=== PATIENT | female | born 1970 | race Caucasian/White ===

== ENCOUNTER 2021-12-21 08:10 | Emergency (ER) | payer BC ==
[~2021-12-21] VITALS: Ht 165.1 cm; Wt 77.1 kg
[2021-12-21] MEDS ORDERED: ESTROVEN CMPLT M4 MG PO (08:46)
[2021-12-21] MEDS ORDERED: PEPCID AC20 MG PO (17:02)
[2021-12-21] MEDS ORDERED: ONDANSETRON ODT4 MG PO (17:02)
== END 2021-12-21 17:16 ==
LOC: ER 08:10
DX: K52.9 Noninfective gastroenteritis and colitis, unspecified (principal); E86.0 Dehydration

== ENCOUNTER 2023-10-30 06:32 | Emergency (ER) | payer BC ==
[~2023-10-30] VITALS: Ht 165.1 cm; Wt 68.0 kg
[~2023-10-30 06:32] MED LIST: ESTROVEN CMPLT M4 MG PO; ONDANSETRON ODT4 MG PO; PEPCID AC20 MG PO
[2023-10-30] MEDS ORDERED: LEXAPRO5 MG (06:38)
[2023-10-30] MEDS ORDERED: WEGOVY0.25 MG/0. (06:38)
[2023-10-30] MEDS ORDERED: XANAX0.25 MG (06:38)
[2023-10-30] MEDS ORDERED: ORPHENADRINE CITRATE 30 MG/ML AMPUL IV STA (07:42)
[2023-10-30] MEDS ORDERED: KETOROLAC TROMETHAMINE 30 MG VIAL IV STA (07:43)
[2023-10-30] MEDS ORDERED: POTASSIUM CHLORIDE/NACL 0.9% 1,000 ML IV ONE (07:45)
[2023-10-30 08:24] LABS: HEMATOCRIT 43.4 % (36.0-45.00); HEMOGLOBIN 14.7 g/dL (12.0-15.00); MEAN CORPUSCULAR HEMOGLOBIN 30.6 pg (27.00-32.0); PLATELET COUNT 218 K/uL (150-450); RED BLOOD COUNT 4.82 M/uL (4.00-6.00); RED CELL DISTRIBUTION WIDTH 13.4 % (11.5-14.5)
[2023-10-30 08:36] LABS: INR 1.01; PARTIAL THROMBOPLASTIN TIME 32.3 SECONDS (22.0-34.0); PROTHROMBIN TIME 10.6 SECONDS (9.0-11.5)
[2023-10-30 08:42] LABS: URINE APPEARANCE Cloudy; URINE BILIRRUBIN Negative (NEGATIVE); URINE BLOOD Negative; URINE COLOR Yellow; URINE GLUCOSE Negative (NEGATIVE); URINE LEUKOCYTE Negative; URINE NITRATE Negative; URINE PROTEIN Negative (NEGATIVE); URINE UROBILINOGEN 0.2 E.U./dl
[2023-10-30 08:47] LABS: URINE BACTERIA 125.9 uL (0.0-1933); URINE EPITHELIAL CELLS 36.7 uL (0.0-38.8); URINE RBC 4.8 uL (0.0-20.8)
[2023-10-30 09:46] LABS: URINE WBC 0.9 uL (0.0-23.2)
[2023-10-30 09:51] LABS: BILIRUBIN TOTAL 0.46 mg/dL (0.3-1.2); CALCIUM 8.9 mg/dL (8.5-10.1); CREATININE SERUM 0.75 mg/dL (0.55-1.02); GFR 81.47; GLOBULINA 2.9 G/DL (2.4-3.5); POTASSIUM 3.85 mEq/L (3.5-5.1); TOTAL PROTEIN 6.9 gm/dL (6.4-8.2)
[2023-10-30] MEDS ORDERED: VISTARIL25 MG PO (10:32)
== END 2023-10-30 10:45 | disposition home or self-care (01) ==
LOC: ER 06:32
PROVIDERS: General Practice
DX: R42 Dizziness and giddiness (principal); R20.2 Paresthesia of skin; R53.81 Other malaise; Z91.041 Radiographic dye allergy status